=== PATIENT | male | born 1970 | race Caucasian/White ===

== ENCOUNTER 2020-08-25 09:21 | Observation (INO) ==
[2020-08-25] MEDS ORDERED: Ondansetron ODT 4 MG TAB.RAPDIS SL PRN (10:52)
[2020-08-25] MEDS ORDERED: Mag Hydrox/Al Hydrox/Simeth 30 ML UDC PO PRN (10:52)
[2020-08-25] MEDS ORDERED: Naloxone 0.4 MG/ML INJ IVP PRN (10:52)
[2020-08-25] MEDS: 0.9 % Sodium Chloride 1,000 ML IVC SCH ×2 (11:07→12:14)
[2020-08-25] MEDS: Ketorolac 30 MG/ML VIAL IVP SCH ×3 (12:09→23:10)
[2020-08-25] MEDS: Acetaminophen 325 MG TABLET PO PRN ×2 (12:24→20:46)
[2020-08-25] MEDS ORDERED: Nicotine 14 MG PATCH.TD24 TD PRN (12:28)
[2020-08-25] MEDS ORDERED: *HR* LORazepam 0.5 MG TABLET PO PRN (18:31)
[2020-08-25 19:20] LABS: BUN/Creatinine Ratio 23 (6-26); Blood Urea Nitrogen 26 mg/dL (6-20); Calcium 7.9 mg/dL (8.6-10.3); Carbon Dioxide 25 mEq/L (23-29); Chloride 95 mEq/L (98-107); Glucose 128 mg/dL (70-105); Osmolality,Calculated 272 (280-300); Sodium 128 mEq/L (136-145); eGFR For African Americans > 60 (> 60); eGFR For Non-African Americans > 60 (> 60)
[2020-08-25] MEDS ORDERED: Vancomycin 1,250 MG/262.5 ML IV.SOLN IVPB SCH (21:00)
[2020-08-25] MEDS: Melatonin 3 MG TABLET PO PRN (23:12)
[2020-08-26 03:12] LABS: Monocytes % 10.2 %
[2020-08-26 03:14] LABS: Basophils # 0.1 K/mcL (0.0-0.2); Basophils % 0.7 %; Eosinophils # 0.1 K/mcL (0.0-0.6); Hematocrit 35.1 % (37.5-50.1); Hemoglobin 11.9 g/dL (12.9-16.9); Immature Granulocytes % 2.3 % (0-4); Immature Platelets 11.6 % (1.1-6.1); Lymphocytes % 17.5 %; Mean Corpuscular HGB Conc 33.9 g/dL (31.6-35.5); Mean Corpuscular Hemoglobin 29.5 pg (28.0-33.3); Mean Corpuscular Volume 86.9 fL (83.0-100.0); Mean Platelet Volume 12.1 fL (9.4-12.4); Monocytes # 1.2 K/mcL (0.0-1.3); Neutrophils # 7.7 K/mcL (1.6-8.9); Platelet Count 124 K/mcL (140-400); Red Blood Count 4.04 M/mcL (4.19-5.50); Red Cell Distribution Width 12.6 % (11.5-14.5); Segmented Neutrophils % 68.3 %; White Blood Count 11.3 K/mcL (4.3-11.1)
[2020-08-26 03:15] LABS: Alanine Aminotransferase 19 Units/L (7-52); Albumin 2.7 g/dL (3.5-5.7); Albumin/Globulin Ratio 0.9 (1.1-2.2); Alkaline Phosphatase 50 Units/L (34-104); Aspartate Amino Transferase 38 Units/L (13-39); BUN/Creatinine Ratio 21 (6-26); Bilirubin,Total 0.7 mg/dL (0.3-1.0); Blood Urea Nitrogen 29 mg/dL (6-20); Calcium 7.6 mg/dL (8.6-10.3); Carbon Dioxide 23 mEq/L (23-29); Chloride 97 mEq/L (98-107); Globulin 3.1 g/dL (2.4-3.5); Glucose 98 mg/dL (70-105); Magnesium 2.3 mg/dL (1.6-2.6); Osmolality,Calculated 272 (280-300); Potassium 3.3 mEq/L (3.5-5.1); Sodium 128 mEq/L (136-145); Total Protein 5.8 g/dL (6.4-8.9); eGFR For African Americans > 60 (> 60); eGFR For Non-African Americans 55 (> 60)
[2020-08-26 04:39] LABS: Platelet Estimate Normal (Normal); Reactive Lymphocytes Present (Not Present)
[2020-08-26] MEDS: Ketorolac 30 MG/ML VIAL IVP SCH (06:09)
[2020-08-26] MEDS ORDERED: *HR* Enoxaparin 40 MG/0.4 ML SYRINGE SQ SCH (07:00)
[2020-08-26] MEDS ORDERED: Vancomycin 1 EACH in 0.9 % Sodium Chloride 250 ML IVPB SCH (10:00)
[2020-08-26] MEDS ORDERED: 0.9 % Sodium Chloride 1,000 ML IVC ONE (10:16)
[2020-08-26] MEDS: *HR* OxyCODONE Immed Rel 5 MG TABLET PO PRN ×3 (10:57→23:15)
[2020-08-26] MEDS: Apixaban 5 MG TABLET PO SCH ×2 (10:58→19:50)
[2020-08-26] MEDS: 0.9 % Sodium Chloride 1,000 ML IVC SCH (10:59)
[2020-08-26] MEDS: cefTRIAXone 1,000 MG in Water for inj. (sterile) 10 ML IVP SCH (12:22)
[2020-08-26] MEDS: Doxycycline 100 MG CAPSULE PO SCH (17:02)
[2020-08-26] MEDS: Melatonin 3 MG TABLET PO PRN (23:15)
[2020-08-27 00:42] LABS: Hematocrit 33.6 % (37.5-50.1); Hemoglobin 11.4 g/dL (12.9-16.9); Mean Corpuscular HGB Conc 33.9 g/dL (31.6-35.5); Mean Corpuscular Hemoglobin 29.1 pg (28.0-33.3); Mean Corpuscular Volume 85.7 fL (83.0-100.0); Mean Platelet Volume 9.1 fL (9.4-12.4); Platelet Count 253 K/mcL (140-400); Red Blood Count 3.92 M/mcL (4.19-5.50); White Blood Count 13.5 K/mcL (4.3-11.1)
[2020-08-27 01:00] LABS: BUN/Creatinine Ratio 19 (6-26); Blood Urea Nitrogen 28 mg/dL (6-20); Calcium 7.5 mg/dL (8.6-10.3); Carbon Dioxide 20 mEq/L (23-29); Chloride 102 mEq/L (98-107); Glucose 117 mg/dL (70-105); Osmolality,Calculated 279 (280-300); Potassium 3.4 mEq/L (3.5-5.1); Sodium 131 mEq/L (136-145); eGFR For African Americans > 60 (> 60); eGFR For Non-African Americans 51 (> 60)
[2020-08-27] MEDS: Doxycycline 100 MG CAPSULE PO SCH ×2 (05:31→17:30)
[2020-08-27] MEDS: *HR* OxyCODONE Immed Rel 5 MG TABLET PO PRN ×4 (05:31→23:22)
[2020-08-27] MEDS: Apixaban 5 MG TABLET PO SCH (07:53)
[2020-08-27] MEDS: Acetaminophen 325 MG TABLET PO PRN ×2 (07:56→15:39)
[2020-08-27] MEDS: cefTRIAXone 1,000 MG in Water for inj. (sterile) 10 ML IVP SCH (09:40)
[2020-08-27] MEDS: 0.9 % Sodium Chloride 1,000 ML IVC SCH ×2 (09:40→21:16)
[2020-08-27] MEDS ORDERED: Potassium Chloride Elixir 20 MEQ/15 ML UDC PO ONE (10:42)
[2020-08-27] MEDS: *HR* Heparin 5,000 UNIT/ML VIAL SQ SCH (17:29)
[2020-08-27] MEDS: Melatonin 3 MG TABLET PO PRN (20:08)
[2020-08-27] MEDS ORDERED: Melatonin 3 MG TABLET PO ONE (23:45)
[2020-08-28] MEDS: Acetaminophen 325 MG TABLET PO PRN (03:02)
[2020-08-28] MEDS: 0.9 % Sodium Chloride 1,000 ML IVC SCH ×3 (05:07→08:28)
[2020-08-28] MEDS: *HR* Heparin 5,000 UNIT/ML VIAL SQ SCH (05:08)
[2020-08-28] MEDS: Doxycycline 100 MG CAPSULE PO SCH (05:08)
[2020-08-28] MEDS: *HR* OxyCODONE Immed Rel 5 MG TABLET PO PRN ×2 (05:18→11:32)
[2020-08-28 05:31] LABS: Basophils # 0.1 K/mcL (0.0-0.2); Basophils % 0.7 %; Eosinophils # 0.1 K/mcL (0.0-0.6); Eosinophils % 0.8 %; Hematocrit 33.3 % (37.5-50.1); Hemoglobin 11.5 g/dL (12.9-16.9); Immature Granulocytes % 4.7 % (0-4); Lymphocytes # 2.5 K/mcL (0.6-4.6); Mean Corpuscular HGB Conc 34.5 g/dL (31.6-35.5); Mean Corpuscular Hemoglobin 29.6 pg (28.0-33.3); Mean Corpuscular Volume 85.8 fL (83.0-100.0); Mean Platelet Volume 8.7 fL (9.4-12.4); Monocytes % 7.4 %; Platelet Count 354 K/mcL (140-400); Red Blood Count 3.88 M/mcL (4.19-5.50); Red Cell Distribution Width 13.5 % (11.5-14.5); Segmented Neutrophils % 67.4 %; White Blood Count 13.4 K/mcL (4.3-11.1)
[2020-08-28 05:50] LABS: BUN/Creatinine Ratio 14 (6-26); Blood Urea Nitrogen 21 mg/dL (6-20); Calcium 7.6 mg/dL (8.6-10.3); Carbon Dioxide 23 mEq/L (23-29); Chloride 105 mEq/L (98-107); Glucose 97 mg/dL (70-105); Osmolality,Calculated 279 (280-300); Potassium 3.7 mEq/L (3.5-5.1); Sodium 133 mEq/L (136-145); eGFR For African Americans > 60 (> 60); eGFR For Non-African Americans 51 (> 60)
[2020-08-28 07:08] VITALS: BP 123/74
[2020-08-28] MEDS: cefTRIAXone 1,000 MG in Water for inj. (sterile) 10 ML IVP SCH (08:14)
== END 2020-08-28 11:54 | disposition left against medical advice (07) ==
LOC: 3ANU → SUATTDRO 10:46 → 2ANU 22:54
PROVIDERS: ADMIT Internal Medicine; ATTEND Internal Medicine

== ENCOUNTER 2021-02-22 15:13 | Inpatient (IN) ==
[2021-02-22] MEDS ORDERED: Acetaminophen 325 MG TABLET PO PRN (18:36)
[2021-02-22] MEDS ORDERED: Artificial Tears SOLN 15 ML BOTTLE BOTH EYES PRN (18:36)
[2021-02-22] MEDS ORDERED: Naloxone 0.4 MG/ML INJ IVP PRN (18:36)
[2021-02-22] MEDS ORDERED: Perflutren Lipid Microsphere 1.3 ML in 0.9 % Sodium Chloride 8.7 ML IVP PRN (18:44)
[2021-02-22 19:27] LABS: INR 1.4; Prothrombin Time 15.7 Seconds (9.4-12.1)
[2021-02-22] MEDS: Norepinephrine 4 MG/254 ML IV.SOLN IVC SCH (19:30)
[2021-02-22 19:37] LABS: Albumin 3.9 g/dL (3.5-5.7); Albumin/Globulin Ratio 1.2 (1.1-2.2); Bilirubin,Direct 0.7 mg/dL (0.0-0.2); Bilirubin,Indirect 0.3 mg/dL (0.0-1.0); Calcium 7.9 mg/dL (8.6-10.3); Globulin 3.3 g/dL (2.4-3.5); Magnesium 2.3 mg/dL (1.6-2.6); Phosphorous 3.8 mg/dL (2.7-4.5); Potassium 4.7 mEq/L (3.5-5.1); Total Protein 7.2 g/dL (6.4-8.9); Troponin I 2.91 ng/mL (< 0.04)
[2021-02-22] MEDS: Pantoprazole 40 MG VIAL IVP SCH (19:47)
[2021-02-22] MEDS: Artificial Tears SOLN 15 ML BOTTLE BOTH EYES SCH (19:48)
[2021-02-22] MEDS: Budesonide/Formoterol 160/4.5 1 PUFF INH IH SCH (19:50)
[2021-02-22 19:53] LABS: Basophils % 0.2 %; Eosinophils % 0.1 %; Hematocrit 45.8 % (37.5-50.1); Immature Granulocytes % 0.8 % (0-4); Lymphocytes # 0.9 K/mcL (0.6-4.6); Lymphocytes % 4.7 %; Mean Corpuscular HGB Conc 32.8 g/dL (31.6-35.5); Mean Corpuscular Hemoglobin 29.2 pg (28.0-33.3); Mean Corpuscular Volume 89.1 fL (83.0-100.0); Mean Platelet Volume 8.3 fL (9.4-12.4); Monocytes # 0.8 K/mcL (0.0-1.3); Monocytes % 3.9 %; Neutrophils # 17.9 K/mcL (1.6-8.9); Platelet Count 192 K/mcL (140-400); Red Blood Count 5.14 M/mcL (4.19-5.50); Segmented Neutrophils % 90.3 %; White Blood Count 19.8 K/mcL (4.3-11.1)
[2021-02-22] MEDS ORDERED: levETIRAcetam 1,000 MG in 0.9 % Sodium Chloride 100 ML IVPB ONE (20:01)
[2021-02-22 20:06] LABS: ABG Base Excess -7 mEq/L (-2 to 3); ABG HCO3 22 mEq/L (21-27); ABG Oxygen Saturation 94 % (95-98); ABG PCO2 60 mmHg (35-45); ABG PH 7.18 pH Units (7.32-7.45); ABG PO2 87 mmHg (85-104); ABG TCO2 24 mEq/L (20-26); Blood Gas Modality ASSIST CONTROL; Blood Gas VT 450 cc
[2021-02-22] MEDS: Chlorhexidine Rinse 15 ML MOUTHWASH MM SCH (20:46)
[2021-02-22] MEDS: Cefepime HCl 2,000 MG in Water for inj. (sterile) 10 ML IVP SCH (20:46)
[2021-02-22 21:39] LABS: ABG Base Excess -7 mEq/L (-2 to 3); ABG HCO3 20 mEq/L (21-27); ABG Oxygen Saturation 100 % (95-98); ABG PCO2 41 mmHg (35-45); ABG PH 7.29 pH Units (7.32-7.45); ABG PO2 326 mmHg (85-104); ABG TCO2 21 mEq/L (20-26); Blood Gas Modality ASSIST CONTROL; Blood Gas VT 500 cc
[2021-02-22] MEDS ORDERED: 0.9 % Sodium Chloride 1,000 ML ONE (22:53)
[2021-02-23] MEDS ORDERED: MetroNIDAZOLE 500 MG/100 ML 500 MG/100 ML BAG IVPB SCH
[2021-02-23] MEDS: MetroNIDAZOLE 500 MG/100 ML 500 MG/100 ML BAG IVPB SCH ×4 (00:18→23:39)
[2021-02-23] MEDS: Artificial Tears SOLN 15 ML BOTTLE BOTH EYES SCH ×7 (00:18→23:31)
[2021-02-23] MEDS: Norepinephrine 4 MG/254 ML IV.SOLN IVC SCH ×4 (01:58→15:00)
[2021-02-23 02:51] LABS: Basophils % 0.2 %
[2021-02-23 02:52] LABS: Basophils # 0.1 K/mcL (0.0-0.2); Hematocrit 45.4 % (37.5-50.1); Hemoglobin 14.9 g/dL (12.9-16.9); Immature Granulocytes % 1.3 % (0-4); Lymphocytes % 2.8 %; Mean Corpuscular HGB Conc 32.8 g/dL (31.6-35.5); Mean Corpuscular Volume 88.3 fL (83.0-100.0); Mean Platelet Volume 8.7 fL (9.4-12.4); Monocytes % 3.3 %; Neutrophils # 28.1 K/mcL (1.6-8.9); Platelet Count 282 K/mcL (140-400); Red Blood Count 5.14 M/mcL (4.19-5.50); Red Cell Distribution Width 15.2 % (11.5-14.5); Segmented Neutrophils % 92.4 %
[2021-02-23 02:56] LABS: Lymphocytes # 0.9 K/mcL (0.6-4.6); White Blood Count 30.4 K/mcL (4.3-11.1)
[2021-02-23 02:58] LABS: INR 1.7; Prothrombin Time 18.8 Seconds (9.4-12.1)
[2021-02-23 03:29] LABS: Albumin 3.7 g/dL (3.5-5.7); Albumin/Globulin Ratio 1.1 (1.1-2.2); Bilirubin,Direct 0.8 mg/dL (0.0-0.2); Bilirubin,Indirect 0.5 mg/dL (0.0-1.0); Bilirubin,Total 1.3 mg/dL (0.3-1.0); Calcium 7.8 mg/dL (8.6-10.3); Globulin 3.3 g/dL (2.4-3.5); Magnesium 1.9 mg/dL (1.6-2.6); Phosphorous 3.5 mg/dL (2.7-4.5); Potassium 4.5 mEq/L (3.5-5.1); Troponin I 3.66 ng/mL (< 0.04)
[2021-02-23 04:20] LABS: ABG Base Excess -8 mEq/L (-2 to 3); ABG HCO3 19 mEq/L (21-27); ABG Oxygen Saturation 100 % (95-98); ABG PCO2 41 mmHg (35-45); ABG PH 7.27 pH Units (7.32-7.45); ABG PO2 364 mmHg (85-104); ABG TCO2 20 mEq/L (20-26); Blood Gas VT 500 cc
[2021-02-23] MEDS: *HR* Heparin 5,000 UNIT/ML VIAL SQ SCH ×2 (05:55→18:18)
[2021-02-23] MEDS: Pantoprazole 40 MG VIAL IVP SCH (08:50)
[2021-02-23] MEDS: Budesonide/Formoterol 160/4.5 1 PUFF INH IH SCH ×2 (08:50→20:20)
[2021-02-23] MEDS: Cefepime HCl 2,000 MG in Water for inj. (sterile) 10 ML IVP SCH ×2 (08:50→19:42)
[2021-02-23] MEDS: Chlorhexidine Rinse 15 ML MOUTHWASH MM SCH ×2 (08:51→19:42)
[2021-02-23] MEDS: levETIRAcetam 750 MG in 0.9 % Sodium Chloride 100 ML IVPB SCH (21:19)
[2021-02-24] MEDS ORDERED: MetroNIDAZOLE 500 MG/100 ML 500 MG/100 ML BAG IVPB SCH
[2021-02-24] MEDS ORDERED: 0.9 % Sodium Chloride 500 ML IVC PRN (02:20)
[2021-02-24] MEDS: Artificial Tears SOLN 15 ML BOTTLE BOTH EYES SCH ×6 (03:25→23:47)
[2021-02-24 03:40] LABS: VBG Ionized Calcium 1.01 mmol/L (1.15-1.35)
[2021-02-24 03:49] LABS: Basophils % 0.1 %; Hematocrit 38.2 % (37.5-50.1); Immature Granulocytes % 0.5 % (0-4); Lymphocytes # 1.7 K/mcL (0.6-4.6); Mean Corpuscular HGB Conc 33.8 g/dL (31.6-35.5); Mean Corpuscular Hemoglobin 29.6 pg (28.0-33.3); Mean Corpuscular Volume 87.6 fL (83.0-100.0); Mean Platelet Volume 9.4 fL (9.4-12.4); Monocytes # 0.7 K/mcL (0.0-1.3); Monocytes % 4.8 %; Neutrophils # 12.6 K/mcL (1.6-8.9); Platelet Count 146 K/mcL (140-400); Red Blood Count 4.36 M/mcL (4.19-5.50); Red Cell Distribution Width 15.9 % (11.5-14.5); Segmented Neutrophils % 83.6 %
[2021-02-24 03:53] LABS: Hemoglobin 12.9 g/dL (12.9-16.9); White Blood Count 15.1 K/mcL (4.3-11.1)
[2021-02-24] MEDS ORDERED: *HR* Metoprolol 5 MG/5 ML VIAL IVP ONE (04:02)
[2021-02-24 04:04] LABS: Albumin/Globulin Ratio 1.1 (1.1-2.2); Bilirubin,Direct 0.9 mg/dL (0.0-0.2); Bilirubin,Indirect 0.5 mg/dL (0.0-1.0); Bilirubin,Total 1.4 mg/dL (0.3-1.0); Calcium 7.1 mg/dL (8.6-10.3); Globulin 2.8 g/dL (2.4-3.5); Magnesium 1.9 mg/dL (1.6-2.6); Potassium 4.4 mEq/L (3.5-5.1); Total Protein 5.8 g/dL (6.4-8.9); Troponin I 1.99 ng/mL (< 0.04)
[2021-02-24 04:53] LABS: Platelet Estimate Normal (Normal)
[2021-02-24 04:56] LABS: ABG Base Excess -6 mEq/L (-2 to 3); ABG HCO3 22 mEq/L (21-27); ABG Oxygen Saturation 99 % (95-98); ABG PCO2 48 mmHg (35-45); ABG PH 7.26 pH Units (7.32-7.45); ABG PO2 151 mmHg (85-104); ABG TCO2 23 mEq/L (20-26); Blood Gas VT 500 cc
[2021-02-24] MEDS: *HR* Heparin 5,000 UNIT/ML VIAL SQ SCH ×2 (05:45→17:44)
[2021-02-24] MEDS: levETIRAcetam 750 MG in 0.9 % Sodium Chloride 100 ML IVPB SCH ×2 (07:44→19:33)
[2021-02-24] MEDS: Chlorhexidine Rinse 15 ML MOUTHWASH MM SCH ×2 (07:45→19:29)
[2021-02-24] MEDS: Cefepime HCl 2,000 MG in Water for inj. (sterile) 10 ML IVP SCH (07:45)
[2021-02-24] MEDS: Pantoprazole 40 MG VIAL IVP SCH (07:46)
[2021-02-24] MEDS: MetroNIDAZOLE 500 MG/100 ML 500 MG/100 ML BAG IVPB SCH ×2 (07:47→17:44)
[2021-02-24] MEDS: Budesonide/Formoterol 160/4.5 1 PUFF INH IH SCH ×2 (07:55→19:54)
[2021-02-24] MEDS: Norepinephrine 4 MG/254 ML IV.SOLN IVC SCH ×3 (10:15→23:47)
[2021-02-24 13:54] LABS: ABG Base Excess -7 mEq/L (-2 to 3); ABG HCO3 19 mEq/L (21-27); ABG Oxygen Saturation 98 % (95-98); ABG PCO2 39 mmHg (35-45); ABG PO2 109 mmHg (85-104); ABG TCO2 20 mEq/L (20-26); Blood Gas VT 500 cc
[2021-02-24 14:00] LABS: ABG Base Excess -6 mEq/L (-2 to 3); ABG HCO3 21 mEq/L (21-27); ABG Oxygen Saturation 100 % (95-98); ABG PCO2 45 mmHg (35-45); ABG PH 7.27 pH Units (7.32-7.45); ABG PO2 546 mmHg (85-104); ABG TCO2 22 mEq/L (20-26); Blood Gas VT 500 cc
[2021-02-24 14:36] LABS: ABG Base Excess -9 mEq/L (-2 to 3); ABG HCO3 23 mEq/L (21-27); ABG Oxygen Saturation 100 % (95-98); ABG PCO2 79 mmHg (35-45); ABG PH 7.07 pH Units (7.32-7.45); ABG PO2 350 mmHg (85-104); ABG TCO2 25 mEq/L (20-26)
[2021-02-24] MEDS ORDERED: Cefepime HCl 1,000 MG in Water for inj. (sterile) 10 ML IVP SCH (18:00)
[2021-02-24 22:13] LABS: ABG Base Excess -6 mEq/L (-2 to 3); ABG HCO3 20 mEq/L (21-27); ABG Oxygen Saturation 100 % (95-98); ABG PCO2 40 mmHg (35-45); ABG PH 7.31 pH Units (7.32-7.45); ABG PO2 424 mmHg (85-104); ABG TCO2 21 mEq/L (20-26); Blood Gas VT 500 cc
[2021-02-24 23:41] VITALS: TEMP 97.5
[2021-02-25 00:10] VITALS: O2SAT 99
[2021-02-25 01:32] VITALS: BP 114/79; PULSE 129
== END 2021-02-24 16:43 | disposition expired | DRG 812 ==
LOC: ICNU 18:29
PROVIDERS: ADMIT Pediatrics; ATTEND Pediatrics

== ENCOUNTER 2021-02-25 00:44 | Inpatient (IN) ==
[2021-02-25 01:57] LABS: ABG Base Excess -6 mEq/L (-2 to 3); ABG HCO3 19 mEq/L (21-27); ABG Oxygen Saturation 98 % (95-98); ABG PCO2 37 mmHg (35-45); ABG PH 7.33 pH Units (7.32-7.45); ABG PO2 106 mmHg (85-104); ABG TCO2 21 mEq/L (20-26); Blood Gas VT 500 cc
[2021-02-25] MEDS ORDERED: Ipratropium/Albuterol Neb 3 ML IH PRN (02:20)
[2021-02-25 02:28] LABS: Hematocrit 39.5 % (37.5-50.1); Hemoglobin 13.1 g/dL (12.9-16.9); Mean Corpuscular HGB Conc 33.2 g/dL (31.6-35.5); Mean Corpuscular Hemoglobin 29.1 pg (28.0-33.3); Mean Corpuscular Volume 87.8 fL (83.0-100.0); Mean Platelet Volume 9.7 fL (9.4-12.4); Platelet Count 158 K/mcL (140-400); Red Cell Distribution Width 16.8 % (11.5-14.5); White Blood Count 16.1 K/mcL (4.3-11.1)
[2021-02-25 02:37] LABS: VBG Ionized Calcium 1.15 mmol/L (1.15-1.35)
[2021-02-25 02:38] LABS: Calcium 8.3 mg/dL (8.6-10.3); Potassium 4.6 mEq/L (3.5-5.1)
[2021-02-25 02:39] LABS: INR 1.3; Prothrombin Time 14.6 Seconds (9.4-12.1)
[2021-02-25 02:41] LABS: Activated Partial Thrombo Time 29.3 Seconds (26.0-36.0)
[2021-02-25 03:05] LABS: Albumin 3.2 g/dL (3.5-5.7); Bilirubin,Direct 1.2 mg/dL (0.0-0.2); Bilirubin,Indirect 0.7 mg/dL (0.0-1.0); Bilirubin,Total 1.9 mg/dL (0.3-1.0); Globulin 3.1 g/dL (2.4-3.5); Magnesium 1.9 mg/dL (1.6-2.6); Phosphorous 2.6 mg/dL (2.7-4.5); Total Protein 6.3 g/dL (6.4-8.9)
[2021-02-25] MEDS: Sodium Bicarbonate 75 MEQ in 0.45 % Sodium Chloride 1,000 ML IVC SCH ×3 (03:06→18:23)
[2021-02-25 03:34] LABS: Bilirubin,Urine Negative (Negative); Blood,Urine Moderate (Negative); Clarity,Urine Ex.Turbid (Clear); Color,Urine Yellow (Yellow); Glucose,Urine (UA) 150 mg/dL (Normal); Granular Casts,Urine Many per lpf (None Seen); Ketones,Urine Negative (Negative); Leukocyte Esterase,Urine Negative (Negative); Nitrite,Urine Negative (Negative); Protein,Urine 100 mg/dL (Neg-Trace); RBC,Urine 0-3 per hpf (0-3); Specific Gravity,Urine 1.014 (1.010-1.025); Urobilinogen,Urine Normal (Normal); WBC,Urine TNTC per hpf (0-3)
[2021-02-25] MEDS ORDERED: Hydrocortisone Sodium Succ 100 MG/2 ML VIAL IVP ONE ×2 (04:00→20:56)
[2021-02-25] MEDS ORDERED: Ringers Solution, Lactated 500 ML IVC ONE (04:22)
[2021-02-25 04:28] LABS: ABG Base Excess -5 mEq/L (-2 to 3); ABG HCO3 20 mEq/L (21-27); ABG Oxygen Saturation 98 % (95-98); ABG PCO2 38 mmHg (35-45); ABG PH 7.33 pH Units (7.32-7.45); ABG PO2 111 mmHg (85-104); ABG TCO2 21 mEq/L (20-26); Blood Gas VT 500 cc
[2021-02-25] MEDS: Norepinephrine 4 MG/254 ML IV.SOLN IVC SCH ×3 (04:48→15:32)
[2021-02-25 05:13] LABS: VBG Ionized Calcium 1.11 mmol/L (1.15-1.35)
[2021-02-25 05:43] LABS: Calcium 8.2 mg/dL (8.6-10.3); Magnesium 1.9 mg/dL (1.6-2.6); Phosphorous 2.6 mg/dL (2.7-4.5); Potassium 4.2 mEq/L (3.5-5.1); Troponin I 1.31 ng/mL (< 0.04)
[2021-02-25 08:36] LABS: ABG Base Excess -6 mEq/L (-2 to 3); ABG HCO3 19 mEq/L (21-27); ABG Oxygen Saturation 99 % (95-98); ABG PCO2 32 mmHg (35-45); ABG PH 7.38 pH Units (7.32-7.45); ABG PO2 125 mmHg (85-104); ABG TCO2 20 mEq/L (20-26); Blood Gas Modality ASSIST CONTROL; Blood Gas VT 500 cc
[2021-02-25] MEDS: Cefepime HCl 1,000 MG in Water for inj. (sterile) 10 ML IVP SCH ×2 (08:42→16:36)
[2021-02-25 08:44] LABS: Hematocrit 36.7 % (37.5-50.1); Hemoglobin 12.1 g/dL (12.9-16.9); Mean Platelet Volume 9.9 fL (9.4-12.4); Platelet Count 142 K/mcL (140-400); Red Blood Count 4.17 M/mcL (4.19-5.50); Red Cell Distribution Width 16.8 % (11.5-14.5); White Blood Count 12.8 K/mcL (4.3-11.1)
[2021-02-25 08:47] LABS: VBG Ionized Calcium 1.15 mmol/L (1.15-1.35)
[2021-02-25 08:51] LABS: INR 1.3; Prothrombin Time 14.1 Seconds (9.4-12.1)
[2021-02-25 09:48] LABS: Bilirubin,Indirect 0.7 mg/dL (0.0-1.0); Bilirubin,Total 1.7 mg/dL (0.3-1.0); Globulin 2.9 g/dL (2.4-3.5); Magnesium 1.8 mg/dL (1.6-2.6); Phosphorous 2.3 mg/dL (2.7-4.5); Total Protein 5.9 g/dL (6.4-8.9)
[2021-02-25 12:11] LABS: ABG Base Excess -4 mEq/L (-2 to 3); ABG HCO3 23 mEq/L (21-27); ABG Oxygen Saturation 97 % (95-98); ABG PCO2 52 mmHg (35-45); ABG PH 7.26 pH Units (7.32-7.45); ABG PO2 107 mmHg (85-104); ABG TCO2 25 mEq/L (20-26); Blood Gas Modality ASSIST CONTROL; Blood Gas VT 500 cc
[2021-02-25 12:43] LABS: VBG Ionized Calcium 1.19 mmol/L (1.15-1.35)
[2021-02-25] MEDS: Hydrocortisone Sodium Succ 100 MG/2 ML VIAL IVP SCH ×2 (12:58→20:08)
[2021-02-25 12:59] LABS: Calcium 8.3 mg/dL (8.6-10.3); Magnesium 1.9 mg/dL (1.6-2.6); Phosphorous 2.8 mg/dL (2.7-4.5); Potassium 4.2 mEq/L (3.5-5.1)
[2021-02-25 16:25] LABS: ABG Base Excess -3 mEq/L (-2 to 3); ABG HCO3 20 mEq/L (21-27); ABG Oxygen Saturation 99 % (95-98); ABG PCO2 28 mmHg (35-45); ABG PH 7.46 pH Units (7.32-7.45); ABG PO2 129 mmHg (85-104); ABG TCO2 21 mEq/L (20-26); Blood Gas VT 500 cc
[2021-02-25 16:43] LABS: VBG Ionized Calcium 1.14 mmol/L (1.15-1.35)
[2021-02-25 16:44] LABS: Basophils % 0.1 %; Hematocrit 32.9 % (37.5-50.1); Hemoglobin 10.9 g/dL (12.9-16.9); Immature Granulocytes % 0.8 % (0-4); Lymphocytes # 0.8 K/mcL (0.6-4.6); Lymphocytes % 6.3 %; Mean Corpuscular HGB Conc 33.1 g/dL (31.6-35.5); Mean Corpuscular Hemoglobin 28.9 pg (28.0-33.3); Mean Corpuscular Volume 87.3 fL (83.0-100.0); Mean Platelet Volume 9.8 fL (9.4-12.4); Monocytes # 0.6 K/mcL (0.0-1.3); Monocytes % 4.7 %; Neutrophils # 10.6 K/mcL (1.6-8.9); Platelet Count 137 K/mcL (140-400); Red Blood Count 3.77 M/mcL (4.19-5.50); Red Cell Distribution Width 16.7 % (11.5-14.5); Segmented Neutrophils % 88.1 %
[2021-02-25 16:56] LABS: INR 1.3; Prothrombin Time 14.5 Seconds (9.4-12.1)
[2021-02-25 16:59] LABS: Activated Partial Thrombo Time 28.6 Seconds (26.0-36.0)
[2021-02-25 17:01] LABS: Albumin 2.8 g/dL (3.5-5.7); Bilirubin,Direct 0.8 mg/dL (0.0-0.2); Bilirubin,Indirect 0.7 mg/dL (0.0-1.0); Bilirubin,Total 1.5 mg/dL (0.3-1.0); Calcium 8.3 mg/dL (8.6-10.3); Globulin 2.8 g/dL (2.4-3.5); Magnesium 1.9 mg/dL (1.6-2.6); Potassium 3.7 mEq/L (3.5-5.1); Total Protein 5.6 g/dL (6.4-8.9)
[2021-02-25 20:04] VITALS: PULSE 94
[2021-02-25 20:29] LABS: ABG Base Excess -2 mEq/L (-2 to 3); ABG HCO3 22 mEq/L (21-27); ABG Oxygen Saturation 100 % (95-98); ABG PCO2 34 mmHg (35-45); ABG PH 7.42 pH Units (7.32-7.45); ABG PO2 573 mmHg (85-104); ABG TCO2 23 mEq/L (20-26); Blood Gas VT 500 cc
[2021-02-25 20:45] LABS: VBG Ionized Calcium 0.98 mmol/L (1.15-1.35)
[2021-02-25 20:59] LABS: Calcium 6.7 mg/dL (8.6-10.3); Magnesium 1.7 mg/dL (1.6-2.6); Potassium 3.2 mEq/L (3.5-5.1)
[2021-02-25 21:04] VITALS: TEMP 97.6; O2SAT 99
[2021-02-25] MEDS ORDERED: Potassium Phosphate 44 MEQ in 0.9 % Sodium Chloride 250 ML IVPB ONE (21:12)
[2021-02-25] MEDS ORDERED: Levothyroxine Sodium 100 MCG VIAL IVP ONE (21:15)
[2021-02-25] MEDS ORDERED: SODIUM CHLORIDE 0.9% IVC SCH (21:30)
[2021-02-25] MEDS ORDERED: LEVOTHYROXINE SODIUM IVC SCH (21:30)
[2021-02-25] MEDS ORDERED: Calcium Gluconate 1gm/50mL 1 GM/50 ML BAG IVPB SCH (21:30)
[2021-02-25 23:40] VITALS: BP 83/57
== END 2021-02-26 02:30 | disposition expired | DRG 91 ==
LOC: MERGE 00:44 → ICNU 00:44
PROVIDERS: ADMIT Internal Medicine; ATTEND Internal Medicine